=== PATIENT | female | born 1950 | race Caucasian/White ===

== ENCOUNTER 2017-07-29 19:29 | Emergency (ER) | payer OTHER ==
[~2017-07-29] VITALS: Ht 160 cm; Wt 59.0 kg
[2017-07-29 19:40] VITALS: BP 136/86
--- NOTE | 2017-07-29 20:22 | NUR ---
PT WIHT LAC. TO L HAND 2ND DIGIT, NOT ACTIVELY BLEEDING, ER MD BEDSIDE TO APPLY GLUE. PT UPDATED PLAN TO D/C
== END 2017-07-29 20:17 | disposition home or self-care (01) ==
LOC: ER 19:35
DX: S61.211A Laceration without foreign body of left index finger without damage to nail, initial encounter (principal); W26.0XXA Contact with knife, initial encounter; Y93.89 Activity, other specified; Y92.89 Other specified places as the place of occurrence of the external cause; Y99.8 Other external cause status
CPT/HCPCS: 12001; 99283; A4606; Z7610